=== PATIENT | male | born 1985 | race Caucasian/White ===

== ENCOUNTER 2025-02-16 12:44 | Outpatient (OUT) | payer OTHER, SELFPAY ==
--- OUTSIDE RECORDS SUMMARY | 2025-01-15 06:45 | XMS_ITS ---
Author Organization [facility] Servic es Address [address] [place] [address] Care Team Providers Care Student Driving Instructor Name Role Phone Dari Hung Primary Care Provider Ed Mccann [phone] REASON FOR VISIT ANXIETY/WORRY Social History Sex Assigned At : Social History Observation Description Sex Assigned At Male Encounters Encounter Location Date Provider Diagnosis [address] [address] [place] [address] 2024 Ed Mccann Plan Of Treatment No Information Progress Notes * REX EMILY ADOB:1985 (39 yo M)Acc No.[id number]:01/15/2025 Consult - Patient Patient: EMILY WEBER Provider: LELAND Zepeda :1985 A ge:39 Y S ex:Male Date:01/15/2025 Address[address] [id number] Pcp:Dari Hung Subjective: * Chief Complaints: * 1 . ANXIETY/WORRY. Objective: Therapeutic Interventions: Assessment: Plan: * Images: Care Plan Details* * Electronic signature of LELAND Shields ph on 02/16/2025 at 12:50 PM EDT Sign off status: Pending * Provider: LELAND Zepeda Date: 0 01/15/2025 Generated for Printi ng/Faxing/eTransmitting on: 0 02/16/2025 12:50 PM EDT
--- OUTSIDE RECORDS SUMMARY | 2025-02-05 06:00 | XMS_ITS ---
Author Organization [facility] Servic es Address [address] [place] [address] Care Team Providers Care Drafter Seismograph Name Role Phone Dari Hung Primary Care Provider Ed Mccann Unavailable [phone] REASON FOR VISIT BH F/U Social History Sex Assigned At : Social History Observation Description Sex Assigned At Male Encounters Encounter Location Date Provider Diagnosis [facility] [address] [place] [address] 02/05/2025 Dari Hung Plan Of Treatment No Information Progress Notes * REX EMILY ADOB:1985 (39 yo M)Acc No.[id number]:02/05/2025 F/U - Patient Patient: EMILY WEBER Provider: Koby CHAVEZ :1985 A ge:39 Y S ex:Male Date:02/05/2025 Address[address] [id number] Subjective: * Chief Complaints: * 1 . BH F/U. Objective: Therapeutic Interventions: Assessment: Plan: * Images: Care Plan Details* * Electronic signature of TONI Martinez on 02/16/2025 at 12:50 PM EDT Sign off status: Pending * Provider: Koby CHAVEZ Date: 0 02/05/2025 Generated for Printi ng/Fasimong/eTransmitting on: 0 02/16/2025 12:50 PM EDT
--- OUTSIDE RECORDS SUMMARY | 2025-02-10 07:15 | XMS_ITS ---
Author Organization [facility] Servic es Address [address] [place] [address] Care Team Providers Care Pens And Pencils Repairer Name Role Phone Dari Hung Primary Care Provider Ed Mccann Unavailable [phone] REASON FOR VISIT BH F/U R/S FROM 02/05 Social History Sex Assigned At : Social History Observation Description Sex Assigned At Male Encounters Encounter Location Date Provider Diagnosis [facility] Services [address] [place] [address] 02/10/2025 Dari Hung Plan Of Treatment No Information Progress Notes * REX EMILY ADOB:1985 (39 yo M)Acc No.[id number]:02/10/2025 F/U - Patient Patient: EMILY WEBER Provider: Koby CHAVEZ :1985 A ge:39 Y S ex:Male Date:02/10/2025 Address:[address] [id number] Subjective: * Chief Complaints: * 1 . BH F/U R/S FROM 02/05. Objective: Therapeutic Interventions: Assessment: Plan: * Images: Care Plan Details* * Electronic signature of TONI Martinez on 02/16/2025 at 12:50 PM EDT Sign off status: Pending * Provider: Koby CHAVEZ Date: 0 02/10/2025 Generated for Celeste levy/Rylan/Destinyitting on: 0 02/16/2025 12:50 PM EDT
--- OUTSIDE RECORDS SUMMARY | 2025-02-16 08:32 | XMS_ITS | Continuity of Care Document ---
Author Organization [facility] Address [address] [place] [address] Phone Care Team Providers Care Engineering Administrator Name Role Phone Thee Subramanian DO Primary Care Provider [phone] Thee Subramanian DO Attending Provider Care Teams Patient Care Team Team Status: Active Member Role Status Dates Thee Subramanian DO Primary Care Provider Active Patient Care Team Team Status: Inactive Member Role Status Dates Thee Subramanian DO Primary Care Provider Active Start: February 16, 2025 End: February 16, 2025 Thee Subramanian DO Attending Provider Active Sta rt: February 16, 2025 End: February 16, 2025 Chief Complaint and Reason for Visit Chief Complaint Admit Date possible broken left foot February 16, 11:44am Reason for Visit Admit Date Foot pain, left February 16, 2025 11 :44am Swelling of left foot February 16, 2025 11:44am Allergies, Adverse Reactions, Alerts Allergen Type Severity Reaction Last Updated Verified Status No Known Allergies Allergy Unknown February 16, 2025 12:03pm Yes Active Social History Smoking Status Status Start Date End Date Date of Observa tion Ex-smoker (finding) October 24, 2023 9:33am Observation Status Observation Response Date of Response Legal Sex Male (finding) Sex Assigned At Male [birth year] Family History Relationship Condition Age at Onset Recorded Date/T nehemiah family member Family history not o btainable due to adoption Unknown Problems Active Problems Medical Problem Onset Date Status Comments Swelling of left foot Unknown Active Mass of skin of abdomen Unknown Active Nicotine addiction Unknown Active quit 03/14 23 MICHELLE (generalized anxiety disorder) Unknown Active Wellness examination Unknown Active Foot pain, left Unknown Active Hypertension Unknown Active Lumbar spondylosis Unknown Active Inactive/Resolved Problems Medical Problem Onset Date Status Comments Tension pneumothorax, spontaneous Unknown Resolve d Medications Medication Status Dose Units Route Directions Qty Days St art Date Stop Date End Date Instructions Adherence Alprazolam 0.5 mg tablet Discont inued 0.5 MG PO Three times daily September 18, 2023 1:37pm November 18, 2023 1:14p m p/u 09/17, start 09/19 Alprazolam 0.5 mg tablet Discont inued 0.5 MG PO Three times daily November 18, 2023 1:14pm January 18, 2024 1:46p m p/u 11/18, start 11/19 Alprazolam 0.5 mg tablet Discont inued 0.5 MG PO Three times daily January 18, 2024 1:45pm [facility] 2023 1:23p m p/u 01/17, start 01/18 Alprazolam 0.5 mg tablet Discont inued 0.5 MG PO Three times daily 2023 1:23pm [facility] 2023 5:30p m p/u 03/17, start 03/19 Alprazolam 0.5 mg tablet Discont inued 0.5 MG PO Three times daily 2023 5:29pm 2023 7:49a m p/u 03/17, start 03/19 Amlodipine 2.5 mg tablet Discont inued 0 .ROUTE .COMPLEX 2023 10:45a m October 27, 2024 10:00 am TAKE 1 TABLET BY MOUTH EVERY DAY Alprazolam 0.5 mg tablet Discont inued 0.5 MG PO Three times daily 2023 7:49am 2024 8:09a m p/u 05/16, start 05/18 Alprazolam 0.5 mg tablet Discont inued 0.5 MG PO Three times daily 2024 8:09am September 13, 2024 8:40a m p/u 07/15, start 07/17 Alprazolam 0.5 mg tablet Discont inued 0.5 MG PO Three times daily September 13, 2024 8:40am November 12, 2024 7:37a m p/u 09/13, start 09/15 Alprazolam 0.5 mg tablet Discont inued 0.5 MG PO Three times daily 90 November 12, 2024 7:37am January 11, 2025 7:20a m p/u 11/12, start 11/14 Alprazolam 0.5 mg tablet Active 0.5 MG PO Three times daily January 11, 2025 7:20am p/u 01/11, start 72 Complies with drug therapy Alprazolam (Xanax) 0.5 mg tablet Discont inued 0.5 MG PO Three times daily as needed for anxiety r 2017 12:00a m 2023 7:16p m Telmisartan 20 mg tablet Active 20 MG PO Daily October 27, 2024 12:00a m Complies with drug therapy Alprazolam (Xanax) 0.5 mg tablet Discont inued 0.5 MG PO Three times daily as needed for anxiety 2023 7:16pm 2023 7:18p m p/u 08/19, start 08/21 Alprazolam (Xanax) 0.5 mg tablet Discont inued 0.5 MG PO Three times daily as needed for anxiety 2023 7:17pm September 18, 2023 1:40p m p/u 08/19, start 08/21 Amlodipine 2.5 mg tablet Discont inued 2.5 MG PO Daily Novemb er 2023 1:00am Novem kiersten 2023 10:45 am Vital Signs Vital Reading Result Reference Range Collection Date/Time Height 76 [in_i] February 16 12:07pm Weight 97.06 kg February 16 12:07pm Heart Rate 80 /min 60-100 February 16 12:07pm Respiratory rate 12 /min 12-January 12:07pm BP Systolic 142 mm[Hg] 100-140 February 16 12:07pm BP Diastolic 99 mm[Hg] 60-100 February 16 12:07pm BMI (Body Mass Index) 26.0 kg/m2 February 16, 2025 12:07pm Advance Directives Advance Directive Response Recorded Date/ Time Advance Directives No July 17, 2023 1:27pm Insurance Providers Guarantor [place] [address] Contact Info. Home Phone: Payer Policy Id Subscriber's Name Subscriber Id Yoandy ctive Date Expiration Date MMO [id number] Sd Wetzel [id number] [place] [id number] Sd Wetzel [id number] [place] Advantage [id number] Sd Wetzel [id number] Encounters Encounter Location(s) Arrival/Admit Date Discharge/Depart Date Provider(s) Departed Physician/Prov ider Office Visit -[facility] February 16, 2025 11:44am February 16, 2025 12:31pm Thee Subramanian , Recent Diagnosis Onset Date Admit Date Foot pain, left Unknown February 16 11:44am Swelling of left foot Unknown January 11:44am Assessments Diagnosis Onset Date Resolution Status Admit Date Foot pain, left acute February 162024 11:44am Swelling of left foot acute Jan 11:44am Plan of Treatment Author Thee Subramanian [facility] Authored February 16, 2025 12 :29pm Injury after slipping and fa lling down several steps. He believes he suffered a hyperextension injury to his foot There is diffuse swelling w/ bruising noted over the MTP joints. Tender to palpation. XR to r/o fracture NSAIDs/Tylenol as needed Elevate as much as possible Activity limited to just as needed Ice, Voltaren Gel XR to f/u fracture Future Tests Future scheduled test information is unavailable Pending Tests Test Name Ordered Date Scheduled Date XR foot LT min 3V* February 16, 2025 12:21pm Future Visits Future appointment information is unavailable Referrals to Other Providers Referral information is unavailable Future Procedures Future procedure information is unavailable Future Medications Future medication information is unavailable Patient Instructions Patient instructions are unavailable
--- OUTSIDE RECORDS SUMMARY | 2025-02-16 12:50 | XMS_ITS | Clinical Summary ---
Author Organization [facility] tem Address [id number] [address] [place] [address] Care Team Providers Care Resource Room Teacher Name Role Phone Thee Subramanian DO Primary Care Provider [phone] Social History Tobacco Use Types Packs/Day Years Used Date Smoking Tobacco: Never Assessed Childcare Answer Date Recorded Childcare Unknown 12/04/2018 Employment Answer Date Recorded Employment Unknown 12/04/2018 Purpose - Life Answer Date Recorded Purpose and direction in life Unknown Sex and Gender Information Value Date Recorded Sex Assigned at Not on file Legal Sex Male 12:06 PM EDT Gender Identity Not on file Sexual Orientation Not on file Plan of Treatment Not on file Medical Devices Not on file Care Teams Resource Room Teacher Relationship Specialty Start Date End Date Thee Subramanian DO [address] [id number] PCP - General 04/15/18
--- OUTSIDE RECORDS SUMMARY | 2025-02-16 12:51 | XMS_ITS | Clinical Summary ---
Author Organization [facility] Address [address], [address] [place] [address] Care Team Providers Care Dumper Name Role Phone Thee Subramanian DO Primary Care Provider [phone] Allergies No known active allergies Medications ALPRAZolam (XANAX) 0.5 MG tablet Take 0.5 mg by mouth 3 times daily as needed for Sleep Active diphenhydrAMINE (BENADRYL) 50 MG capsule Take 1 tablet by mouth every 6 hours when necessary itching and swelling 20 capsule 0 5 Active Social History Tobacco Use Types Packs/Day Years Used Date Smoking Tobacco: Never Assessed Sex and Gender Information Value Date Recorded Sex Assigned at Not on file Legal Sex Male 2:48 PM EST Gender Identity Not on file Sexual Orientation Not on file Last Filed Vital Signs Vital Sign Reading Time Taken Comments Blood Pressure 146/88 03/15/2015 7:20 PM EDT Pulse 83 03/15/2015 7:20 PM EDT Temperature 37 C (98.6 F) 03/15/2015 7:20 PM EDT Respiratory Rate 16 03/15/2015 7:20 PM EDT Oxygen Saturation 99% 03/15/2015 7:20 PM EDT Inhaled Oxygen Concentration - - Weight 85.7 kg (189 lb) 03/15/2015 7:20 PM EDT Height 193 cm (6' 4 ) 03/15/2015 7:20 PM EDT Body Mass Index 23.01 03/15/2015 7:20 PM EDT Plan of Treatment Not on file Care Teams Dumper Relationship Specialty Start Date End Date Thee Subramanian DO PCP - General 03/15/15
--- OUTSIDE RECORDS SUMMARY | 2025-02-16 12:51 | XMS_ITS | Patient Health Record ---
Author Organization [facility] Servic es Address [address] [place] [address] Care Team Providers Care Title One Kindergarten Teacher Name Role Phone Dari Hung Primary Care Provider Ed Mccann [phone] Reason For Referral No Information Social History Sex Assigned At : Social History Observation Description Sex Assigned At Male Problems Problem Type SNOMED Code ICD Code Onset Dates Problem Status W/U Status Risk Notes Problem Generalized anxiety disorder (F41.1) Active confirmed Encounters Encounter Location Date Provider Diagnosis [facility] [address] [place] [address] 01/15/2025 Dari Hung Generalized anxiety disorder F41.1 Assessments Encounter Date Diagnosis (ICD Code) Assessment Notes Treatment Notes Treatment Clinical Notes Section Notes 01/15/2025 Generalized anxiety disorder (ICD-10 - F41.1) Plan Of Treatment No Information Insurance Providers Payer Name Payer Address Payer Phone Subscriber Number Group Number Insured Name Patient Relationship to Insured Coverage Start Date Coverage End Date [employer] [address] [place] [phone] [id number] EMILY GOODMAN Self - patient is the insured
--- NOTE | 2025-02-16 12:54 | XR_ITS ---
[address] [place] [id number] Patient Name: EMILY GOODMAN MRN: [id number] date: 1985 Sex: M Assigned Patient Location: [facility] Current Patient Location: [facility] Accession/Order Number: [id number] Exam Date: 02/16/2025 13:05 Report Date: 02/16/2025 13:39 At the request of: ANTHONY CHAVES DO Procedure: XR foot LT min 3V ? FOOT - 3 views CLINICAL HISTORY: Acute pain and swelling redness across top of left foot. Injury last . COMPARISON: None FINDINGS: Soft tissue swelling is present. Minimally displaced fracture involving the proximal phalanx of the fourth digit. No additional fractures are seen. Joint spaces appear maintained. No bony erosions. XR/XR foot LT min 3V IMPRESSION: MINIMALLY DISPLACED FRACTURE PROXIMAL PHALANX FOURTH DIGIT. Impression dictated by: Ed Jacques Jr., DNoeONoe 02/16/2025 1:39 PM Dictation Location: [place] [address] Electronically authenticated by: [id number] Y Date: 02/16/2025 13:39
== END 2025-02-16 12:45 | disposition home or self-care (01) ==
LOC: RAD 12:48
PROVIDERS: PCP Internal Medicine; Visit Provider Internal Medicine
DX: M79.672 Pain in left foot (principal); M79.89 Other specified soft tissue disorders; S92.512A Displaced fracture of proximal phalanx of left lesser toe(s), initial encounter for closed fracture
CPT/HCPCS: 73630

== ENCOUNTER 2025-03-24 07:51 | Outpatient (OUT) | payer OTHER, SELFPAY ==
--- OUTSIDE RECORDS SUMMARY | 2025-01-15 06:45 | XMS_ITS ---
Author Organization [facility] Servic es Address [address] [place] [address] Care Team Providers Care Cigar Packing Examiner Name Role Phone Dari Hung Primary Care Provider Ed Mccann [phone] REASON FOR VISIT ANXIETY/WORRY Social History Sex Assigned At : Social History Observation Description Sex Assigned At Male Encounters Encounter Location Date Provider Diagnosis [place] [address] [facility] [place] [address] 2024 Ed Mccann Plan Of Treatment No Information Progress Notes * REX EMILY ADOB:1985 (39 yo M)Acc No.[id number]:01/15/2025 Consult - Patient Patient: EMILY WEBER Provider: LELAND Zepeda :1985 A ge:39 Y S ex:Male Date:01/15/2025 Address[place] [id number] Pcp:Dari Hung Subjective: * Chief Complaints: * 1 . ANXIETY/WORRY. Objective: Therapeutic Interventions: Assessment: Plan: * Images: Care Plan Details* * Electronic signature of LELAND Shields ph on 03/24/2025 at 07:53 AM EDT Sign off status: Pending * Provider: LELAND Zepeda Date: 0 01/15/2025 Generated for Printi ng/Faxing/eTransmitting on: 0 03/24/2025 07:53 AM EDT
--- OUTSIDE RECORDS SUMMARY | 2025-02-05 06:00 | XMS_ITS ---
Author Organization [facility] Servic es Address [address] [place] [address] Care Team Providers Care Programmer Numerical Control Name Role Phone Dari Hung Primary Care Provider Ed Mccann Unavailable [phone] REASON FOR VISIT BH F/U Social History Sex Assigned At : Social History Observation Description Sex Assigned At Male Encounters Encounter Location Date Provider Diagnosis [facility] [address] [place] [address] 02/05/2025 Dari Hung Plan Of Treatment No Information Progress Notes * REX EMILY ADOB:1985 (39 yo M)Acc No.[id number]:02/05/2025 F/U - Patient Patient: EMILY WEBER Provider: Koby CHAVEZ :1985 A ge:39 Y S ex:Male Date:02/05/2025 Address[address] [id number] Subjective: * Chief Complaints: * 1 . BH F/U. Objective: Therapeutic Interventions: Assessment: Plan: * Images: Care Plan Details* * Electronic signature of TONI Martinez on 03/24/2025 at 07:54 AM EDT Sign off status: Pending * Provider: Koby CHAVEZ Date: 0 02/05/2025 Generated for Printi ng/Fasimong/eTransmitting on: 0 03/24/2025 07:54 AM EDT
--- OUTSIDE RECORDS SUMMARY | 2025-02-10 07:15 | XMS_ITS ---
Author Organization [facility] Servic es Address [address] [place] [address] Care Team Providers Care Massotherapist Name Role Phone Dari Hung Primary Care Provider Ed Mccann Unavailable [phone] REASON FOR VISIT BH F/U R/S FROM 02/05 Social History Sex Assigned At : Social History Observation Description Sex Assigned At Male Encounters Encounter Location Date Provider Diagnosis [facility] Services [address] [place] [address] 02/10/2025 Dari Hung Plan Of Treatment No Information Progress Notes * REX EMILY ADOB:1985 (39 yo M)Acc No.[id number]:02/10/2025 F/U - Patient Patient: EMILY WEBER Provider: Koby CHAVEZ :1985 A ge:39 Y S ex:Male Date:02/10/2025 Address[place] [id number] Subjective: * Chief Complaints: * 1 . BH F/U R/S FROM 02/05. Objective: Therapeutic Interventions: Assessment: Plan: * Images: Care Plan Details* * Electronic signature of TONI Martinez on 03/24/2025 at 07:54 AM EDT Sign off status: Pending * Provider: Koby CHAVEZ Date: 0 02/10/2025 Generated for Celeste levy/Rylan/Destinyitting on: 0 03/24/2025 07:54 AM EDT
--- OUTSIDE RECORDS SUMMARY | 2025-03-17 15:10 | XMS_ITS | Encounter Summary ---
Author Organization [facility] Address [address] [place] [address] Care Team Providers Care Jewelry Sales Representative Name Role Phone Thee Subramanian DO Primary Care Provider Reason for Visit * Reason Comments Follow-up Lt 4th fx Encounter Details Date Type Department Care Team (Late st Contact Info) Description 03/17/2025 3:10 PM EDT [facility] Visit [facility] [address] [place] [id number] Lupillo Teran DPM [address] [address] Closed fracture of phalanx of left fourth toe, initial encounter (Primary Dx) Social History Tobacco Use Types Packs/Day Years Used Date Smoking Tobacco: Former Cigarettes Tobacco Cessation:Counseling Given: Yes Sex and Gender Information Value Date Recorded Sex Assigned at Not on file Legal Sex Male 8:13 PM EDT Gender Identity Not on file Sexual Orientation Not on file documented as of this encounter Last Filed Vital Signs Vital Sign Reading Time Taken Comments Blood Pressure - - Pulse - - Temperature - - Respiratory Rate 18 03/17/2025 3:20 PM EDT Oxygen Saturation - - Inhaled Oxygen Concentration - - Weight 97.1 kg (214 lb) 03/17/2025 3:20 PM EDT Height 193 cm (6' 4 ) 03/17/2025 3:20 PM EDT Body Mass Index 26.05 03/17/2025 3:20 PM EDT documented in this encounter Progress Notes * Lupillo Teran DPM - 03/17/2025 11:00 AM EDT Patient: Sd Wetzel : 1985 PCP: Thee Subramanian DO SUBJECTIVE This is a 39 y.o. male that presents today for a 3 week follow up of left 4th toe fx. Pt declined sx and has been taking nsaids and in a CAM walker with positive improvement. Patient rates pain a 0-1/10. Allergies: No Known Allergies Past Medical History: Past Medical History: Diagnosis Date Hypertension Medications: Current Outpatient Medications: ALPRAZolam (Xanax) 0.5 MG tablet, TAKE 1 TABLET BY MOUTH 3 TIMES A DAY FOR 30 DAYS, Disp: , Rfl: Social History: Social History Socioeconomic History Marital status: Unmarried Spouse name: Not on file Number of children: Not on file Years of education: Not on file Highest education level: Not on file Occupational History Not on file Tobacco Use Smoking status: Former Types: Cigarettes Smokeless tobacco: Not on file Substance and Sexual Activity Alcohol use: Not on file Drug use: Not on file Sexual activity: Not on file Other Topics Concern Not on file Social History Narrative Not on file Social Drivers of Health Financial Resource Strain: Not on file Food Insecurity: Not on file Transportation Needs: Not on file Physical Activity: Not on file Stress: Not on file Social Connections: Not on file Intimate Partner Violence: Not on file Housing Stability: Not on file ROS: Gastrointestinal: denies abdominal pain, ulcers, or changes in appetite or bowel habits Musculoskeletal: positive hx of arthritis, loss of strength, with positive history of back pain Cardiovascular: denies CP, palpitations, irregular rhythms OBJECTIVE LE EXAM: DERM: Positive hair growth to b/l feet with good skin turgor noted. Negative openings in skin. Edema left 4th toe VASC: Palpable pedal pulsed b/l with warm to cool tibia to toes b/l NEURO: Gross sensation intact digits 1-10 and b/l feet ORTHO: +5/5 DF/PF/IN/EV right, +5/5 DF/PF/IN/EV left. 20 degrees inversion and 10 degrees eversion STJ b/l. Ankle ROM less than 10 degrees b/l. Negative pain on palpation to left 4th digit proximal phalanx XRAY: XR foot 3+ views left Imaging Result: Oblique left 4th digit mid shaft fracture of the proximal phalanx with minimal periosteal reaction but negative displacement or diastasis US: ASSESSMENT 1. Closed fracture of phalanx of left fourth toe, initial encounter PLAN continue with cam walker. Pt to take nsaids as needed PRN pain Reviewed xrays today with patient Discussed possible 4th toe sx in the future if no improvement. Lupillo Teran DPM documented in this encounter Plan of Treatment Upcoming Encounters Date Type Department Care Team (Late st Contact Info) Description 04/09/2025 11:00 AM EDT Office Visit [facility] [address] [facility] [address] [place] [id number] Lupillo Teran DPM [address] [facility] [address] [place] [address] documented as of this encounter Procedures Procedure Name Priority Date/Time Associated Diagnosis Comments XR FOOT 3+ VIEWS LEFT Routine 03/17/2025 3:35 PM EDT Closed fracture of phalanx of left fourth toe, initial encounter documented in this encounter Results * XR foot 3+ views left (03/17/2025 3:35 PM EDT) Anatomical Region Laterality Modality Lower Extremities, Foot Left Radiogra phic Imaging Narrative 03/17/2025 3:36 PM EDT Imaging Result: Oblique left 4th digit mid shaft fracture of the proximal phalanx with minimal periosteal reaction but negative displacement or diastasis us Lupillo Teran DPM IMG XR PROCEDURES Final Res ult documented in this encounter Visit Diagnoses Diagnosis Closed fracture of phalanx of left fourth toe, initial encounter- Primary documented in this encounter Care Teams Jewelry Sales Representative Relationship Specialty Start Date End Date Thee Subramanian DO [address] [facility] [place] [id number] PCP - General Internal Medicine 02/24/25 documented as of this encounter
--- OUTSIDE RECORDS SUMMARY | 2025-03-17 15:40 | XMS_ITS | Encounter Summary ---
Author Organization [facility] Address [address] [place] [address] Care Team Providers Care Vp & General Counsel Name Role Phone Thee Subramanian DO Primary Care Provider Encounter Details Date Type Department Care Team (Late st Contact Info) Description 03/17/2025 3:40 PM EDT Ancillary Procedure [facility] [address] [place] [address] Social History Tobacco Use Types Packs/Day Years Used Date Smoking Tobacco: Former Cigarettes Sex and Gender Information Value Date Recorded Sex Assigned at Not on file Legal Sex Male 8:13 PM EDT Gender Identity Not on file Sexual Orientation Not on file documented as of this encounter Plan of Treatment Upcoming Encounters Date Type Department Care Team (Late st Contact Info) Description 04/09/2025 11:00 AM EDT Office Visit [facility] [address] [facility] [address] [place] [address] Lupillo Teran, DPM [address] [facility] 5 [place] [address] documented as of this encounter Procedures Procedure [...] ult documented in this encounter Visit Diagnoses Not on filedocumented in this encounter Care Teams Vp & General Counsel Relationship Specialty Start Date End Date Thee Subramanian DO [address] [place] [address] PCP - General Internal Medicine 02/24/25 documented as of this encounter
--- OUTSIDE RECORDS SUMMARY | 2025-03-24 07:54 | XMS_ITS | Encounter Summary ---
Author Organization [facility] Address [address] [place] [address] Care Team Providers Care Labor Delivery Rn Name Role Phone Thee Subramanian DO Primary Care Provider [phone] Encounter Details Date Type Department Care Team (Late Contact Info) Description 03/17/2025 Bamboo flowsheet [facility] [address] [place] [phone] Lupillo Teran DPM [address] [address] Social History Tobacco Use Types Packs/Day Years [...] 04/09/2025 11:00 AM EDT Office Visit [facility] [address] [facility] [address] [place] [phone] Lupillo Teran DPM [address] [address] documented as of this encounter Visit Diagnoses Not on filedocumented in this encounter Care Teams Labor Delivery Rn Relationship Specialty Start Date End Date Thee Subramanian DO [address] [place] [id number] PCP - General Internal Medicine 02/24/25 documented as of this encounter
--- OUTSIDE RECORDS SUMMARY | 2025-03-24 07:54 | XMS_ITS | Encounter Summary ---
Author Organization [facility] Address [address] [place] [address] Care Team Providers Care Property Accountant Name Role Phone Thee Subramanian DO Primary Care Provider [phone] Encounter Details Date Type Department Care Team (Late Contact Info) Description 02/26/2025 Abstract [facility] [address] [place] [address] [place] [address] Lupillo Teran DPM [address] [address] Social History Tobacco Use Types Packs/Day Years [...] EDT Office Visit [facility] [address] [place] [address] [place] [address] Lupillo Teran DPM [address] [address] documented as of this encounter Visit Diagnoses Not on filedocumented in this encounter Care Teams Property Accountant Relationship Specialty Start Date End Date Thee Subramanian DO [address] [place] [address] PCP - General Internal Medicine 02/24/25 documented as of this encounter
--- OUTSIDE RECORDS SUMMARY | 2025-03-24 07:54 | XMS_ITS | Encounter Summary ---
Author Organization [facility] Address [address] [place] [address] Care Team Providers Care Detective Automobile Section Name Role Phone Thee Subramanian DO Primary Care Provider [phone] Encounter Details Date Type Department Care Team (Late Contact Info) Description 02/26/2025 Abstract [facility] [address] [place] [address] [place] [address] Lupillo Teran DPM [address] [address] Social History Tobacco Use Types [...] [facility] [address] [place] [address] [place] [address] Lupillo Teran DPM [address] [address] documented as of this encounter Visit Diagnoses Not on filedocumented in this encounter Care Teams Detective Automobile Section Relationship Specialty Start Date End Date Thee Subramanian DO [address] [place] [address] PCP - General Internal Medicine 02/24/25 documented as of this encounter
--- OUTSIDE RECORDS SUMMARY | 2025-03-24 07:54 | XMS_ITS | Patient Health Record ---
Author Organization [facility] Address [address] [place] [address] Care Team Providers Care Crochet Beader Name Role Phone Dari Hung Primary Care Provider Ed Mccann [phone] Reason For Referral No Information Social History Sex Assigned At : Social History Observation Description Sex Assigned At Male Problems Problem Type SNOMED Code ICD Code Onset Dates Problem Status W/U Status Risk Notes Problem Generalized anxiety disorder (39091379) Generalized anxiety disorder (F41.1) Active confirmed Encounters Encounter Location Date Provider Diagnosis [facility] [address] [place] [address] 01/15/2025 Dari Hung Generalized anxiety disorder F41.1 Assessments Encounter Date Diagnosis (ICD Code) Assessment Notes Treatment Notes Treatment Clinical Notes Section Notes 01/15/2025 Generalized anxiety disorder (ICD-10 - F41.1) Plan Of Treatment No Information Insurance Providers Payer Name Payer Address Payer Phone Subscriber Number Group Number Insured Name Patient Relationship to Insured Coverage Start Date Coverage End Date [employer] [address] [place] [address] [id number] EMILY GOODMAN Self - patient is the insured
--- OUTSIDE RECORDS SUMMARY | 2025-03-24 07:54 | XMS_ITS | Clinical Summary ---
Author Organization [facility] tem Address [id number] [address] [place] [address] Care Team Providers Care Workforce Management Manager Name Role Phone Thee Subramanian DO Primary Care Provider [phone] Social History Tobacco Use Types Packs/Day Years [...] Medical Devices Not on file Care Teams Workforce Management Manager Relationship Specialty Start Date End Date Thee Subramanian DO [address] [place] [id number] PCP - General 04/15/18
--- OUTSIDE RECORDS SUMMARY | 2025-03-24 07:55 | XMS_ITS | Clinical Summary ---
Author Organization [facility] Address [address] [facility], [address] [place] [address] Care Team Providers Care Cytogeneticist Name Role Phone Thee Subramanian DO Primary Care Provider [phone] Allergies No known active allergies Medications ALPRAZolam [...] of Treatment Not on file Care Teams Cytogeneticist Relationship Specialty Start Date End Date Thee Subramanian DO PCP - General 03/15/15
--- NOTE | 2025-03-24 07:57 | XR_ITS ---
[place] [id number] Patient Name: EMILY GOODMAN MRN: [id number] date: 1985 Sex: M Assigned Patient Location: [facility] Current Patient Location: [facility] Accession/Order Number: [id number] Exam Date: 03/24/2025 08:00 Report Date: 03/24/2025 08:28 At the request of: ANTHONY CHAVES DO Procedure: XR foreign body eye NUBIA XR foreign body eye NUBIA 03/24/2025 8:05 AM SIGNS AND SYMPTOMS: ^Foreign Body Eye Screen PROTOCOL: Frontal and lateral radiographs of the orbits COMPARISON: None FINDINGS: No abnormal radiopaque foreign body. The paranasal sinuses are well aerated. The orbital rims are intact. XR/XR foreign body eye NUBIA IMPRESSION: No abnormal radiopaque foreign body. Impression dictated by: Roderick Francis M.D. 03/24/2025 8:28 AM Dictation Location: [place] [address] Electronically authenticated by: [id number] Y Date: 03/24/2025 08:28
--- NOTE | 2025-03-24 07:57 | MR_ITS ---
[place] [id number] Patient Name: EMILY GOODMAN MRN: [id number] date: 1985 Sex: M Assigned Patient Location: [facility] Current Patient Location: [facility] Accession/Order Number: [id number] Exam Date: 03/24/2025 08:30 Report Date: 03/24/2025 09:17 At the request of: ANTHONY CHAVES DO Procedure: MR head/brain wo con MR head/brain wo con 03/24/2025 9:12 AM SIGN AND SYMPTOMS: ^Memory Impairment, History Concussion PROTOCOL: Multiplanar multisequence MR images of the brain without IV contrast COMPARISON: None. FINDINGS: Extra axial spaces: Age appropriate. Hemorrhage: None. Ventricular system: Within normal limits. Basal cisterns: Within normal limits and not effaced. Cerebral parenchyma: Normal in signal. Midline shift: None.. Cerebellum: Within normal limits. Brainstem: Within normal limits. OTHER: Calvarium: Normal marrow signal. Vascular system: Satisfactory flow voids within the anterior and posterior circulation. Visualized Paranasal sinuses: Mucosal thickening is noted in the ethmoid air cells. Visualized Orbits: Within normal limits. Visualized upper cervical spine: Within normal limits. Sella and skull base: Within normal limits. MR/MR head/brain wo con IMPRESSION: No acute intracranial pathology. Mild mucosal thickening is noted in the ethmoid air cells. Impression dictated by: Roderick Francis M.D. 03/24/2025 9:17 AM Dictation Location: [place] [address] Electronically authenticated by: [id number] Y Date: 03/24/2025 09:17
[2025-03-24 09:44] LABS: Hematocrit 42.1 % (42.0-54.0); Hemoglobin 15.2 g/dL (14.0-18.0); Immature Granulocytes Abs Auto 0.01 10^3/uL (0.00-0.03); Immature Granulocytes Pct Auto 0.2 % (0.0-0.5); Lymphocytes Absolute Auto 1.3 10^3/uL (1.2-3.8); Mean Corpuscular HGB Conc 36.1 g/dL (29.9-35.2); Mean Corpuscular Hemoglobin 35.1 pg (25.9-34.0); Mean Corpuscular Volume 97.2 fL (80.0-94.0); Platelet Count 252 10^3/uL (150-450); Red Blood Count 4.33 10^6/uL (4.70-6.10); White Blood Count 4.8 10^3/uL (4.0-11.0)
[2025-03-24 10:14] LABS: Alanine Aminotransferase 40 U/L (16-63); Albumin Globulin Ratio 1.1; Albumin Level 4.0 g/dL (3.4-5.0); Alkaline Phosphatase 49 U/L (46-116); Anion Gap 13.0; Aspartate Amino Transferase 30 U/L (15-37); Blood Urea Nitrogen 10.0 mg/dL (7.0-18.0); Calcium 8.8 mg/dL (8.5-10.1); Carbon Dioxide 26.8 mmol/L (21.0-32.0); Chloride 102 mmol/L (98-107); Estimated GFR (African America >60 (>=60 mL/min/1.73m^2); Estimated GFR (Non-African Ame >60 (>=60 mL/min/1.73m^2); Globulin 3.8 g/dL; Glucose 98 mg/dL (74-106); Potassium 3.8 mmol/L (3.5-5.1); Sodium 138 mmol/L (136-145); Thyroid Stimulating Hormone 2.346 uIU/mL (0.358-3.740); Total Protein 7.8 g/dL (6.4-8.2)
[2025-03-24 10:57] LABS: Folate 3.50 ng/mL (8.60-58.90)
[2025-03-25 04:07] LABS: Vitamin B12 492 pg/mL (232-1245)
== END 2025-03-24 07:52 | disposition home or self-care (01) ==
LOC: RAD 07:51
PROVIDERS: PCP Internal Medicine; Visit Provider Internal Medicine
DX: Z01.89 Encounter for other specified special examinations (principal); R41.3 Other amnesia; I10 Essential (primary) hypertension; R53.83 Other fatigue; Z87.820 Personal history of traumatic brain injury
CPT/HCPCS: 36415; 70030; 70551; 80053; 82607; 82746; 84443; 85025